=== PATIENT | male | born 1980 | race Asian ===

== ENCOUNTER 2024-05-23 20:56 | Emergency (ER) | payer OTHER ==
[~2024-05-23] VITALS: Ht 182.9 cm; Wt 81.8 kg
[2024-05-23] MEDS: diphenhdrAMINE HCL 50 MG/1 ML VL IV ONE (21:45)
[2024-05-23] MEDS ORDERED: PRED20TA2 PO (22:02)
[2024-05-23] MEDS: methylPREDNISolone SOD SUCC 125 MG/2 ML VL IM ONE (22:02)
[2024-05-23] MEDS ORDERED: DIPH25CA66 PO (22:02)
[2024-05-23 22:44] VITALS: BP 113/81; PULSE 94; RESP 17; TEMP 98; O2SAT 100
[2024-05-24] MEDS ORDERED: PRED20TA2 PO (18:50)
== END 2024-05-23 22:50 | disposition home or self-care (01) ==
LOC: ER 20:56
DX: T78.40XA Allergy, unspecified, initial encounter (principal); X58.XXXA Exposure to other specified factors, initial encounter
CPT/HCPCS: 96372; 96374; 99284; J1200; J2919